=== PATIENT | male | born 1955 | race Caucasian/White ===

== ENCOUNTER → 2024-06-30 11:59 | Outpatient (REF) | payer MEDICARE, OTHER, SELFPAY | LOC: RAD 11:59 | PROVIDERS: ATTENDING PHYSICIAN Podiatrist; REFERRING PHYSICIAN Family Medicine | DX: M77.50 Other enthesopathy of unspecified foot and ankle (principal); M21.6X9 Other acquired deformities of unspecified foot | CPT/HCPCS: 73630 ==

== ENCOUNTER → 2025-06-19 08:33 | Outpatient (REF) | payer MEDICARE, OTHER, SELFPAY | LOC: PAVMRI 08:33 | PROVIDERS: ATTENDING PHYSICIAN Psychiatry & Neurology Neurology; FAMILY PHYSICIAN Family Medicine | DX: I63.9 Cerebral infarction, unspecified (principal) | CPT/HCPCS: 70551 ==